=== PATIENT | female | born 1980 | race Caucasian/White ===

== ENCOUNTER 2016-12-03 01:04 | Emergency (ER) | payer OTHER ==
[~2016-12-03 01:04] MED LIST: AIRBORNE TABLE1 EACH; ALLEGRA ALLERG180 MG PO; LORTAB 7.5-3251 EACH PO
== END 2016-12-03 02:09 | disposition home or self-care (01) ==
LOC: SED 01:04
DX: L02.413 Cutaneous abscess of right upper limb (principal); L03.113 Cellulitis of right upper limb; J45.909 Unspecified asthma, uncomplicated; F17.210 Nicotine dependence, cigarettes, uncomplicated; Z98.51 Tubal ligation status
CPT/HCPCS: 10060; 99283